=== PATIENT | female | born 1990 | race Caucasian/White ===

== ENCOUNTER 2017-09-18 15:50 | Emergency (ER) | payer MEDICAID, OTHER ==
[~2017-09-18] VITALS: Ht 177.8 cm; Wt 161.5 kg
[2017-09-18 16:12] VITALS: BP 137/86
== END 2017-09-18 18:39 | disposition home or self-care (01) ==
LOC: ED 18:20
DX: M17.12 Unilateral primary osteoarthritis, left knee (principal); G89.11 Acute pain due to trauma; F41.1 Generalized anxiety disorder; E66.01 Morbid (severe) obesity due to excess calories; Z90.89 Acquired absence of other organs; V89.2XXA Person injured in unspecified motor-vehicle accident, traffic, initial encounter; Y93.89 Activity, other specified; Y99.8 Other external cause status; Y92.488 Other paved roadways as the place of occurrence of the external cause
CPT/HCPCS: 29505; 99284

== ENCOUNTER 2020-01-17 19:57 | Emergency (ER) | payer SELFPAY ==
[~2020-01-17] VITALS: Ht 177.8 cm; Wt 182.7 kg
[2020-01-17] MEDS ORDERED: LORazepam 2 MG/ML, 1ML IVPush ONE (20:30)
[2020-01-17] MEDS ORDERED: SODIUM CHLORIDE FLUSH 10ML SYR IVF ONE (20:30)
[2020-01-17] MEDS ORDERED: SODIUM CHLORIDE 0.9% 1,000ML IVBOLUS ONE (20:30)
[2020-01-17] MEDS ORDERED: LORazepam 2 MG/ML, 1ML ONE ×2 (20:44→20:48)
[2020-01-17 20:49] LABS: BASOPHILS # (AUTO) 0.03 x10^3/uL (0-0.1); BASOPHILS % (AUTO) 0 % (0-1); EOSINOPHILS # (AUTO) 0.12 x10^3/uL (0-0.4); EOSINOPHILS % (AUTO) 1 % (1-7); LYMPHOCYTES # (AUTO) 3.25 x10^3/uL (1-3.4); LYMPHOCYTES % (AUTO) 30 % (22-44); MD NO; MEAN CORPUSCULAR HEMOGLOBIN 30.7 pg (27.0-34.8); MEAN CORPUSCULAR HGB CONC 33.7 g/dL (32.4-35.8); MEAN CORPUSCULAR VOLUME 91.3 fL (80-100); MEAN PLATELET VOLUME 7.8 fL (7.4-10.4); MONOCYTES # (AUTO) 0.82 x10^3/uL (0.2-0.8); MONOCYTES % (AUTO) 8 % (2-9); NEUTROPHILS # (AUTO) 6.82 x10^3/uL (1.8-6.8); NEUTROPHILS % (AUTO) 62 % (42-75); PLATELET COUNT 359 x10^3/uL (130-400); RED BLOOD COUNT 5.55 x10^6/uL (3.82-5.3); RED CELL DISTRIBUTION WIDTH 12.8 % (9.6-15.2)
[2020-01-17 20:50] LABS: ALANINE AMINOTRANSFERASE 57 U/L (12-78); ALBUMIN 4.2 g/dL (3.4-5.0); ANION GAP 6 mmol/L (5-15); CALCIUM 9.6 mg/dL (8.5-10.1); CHLORIDE 108 mmol/L (98-107)
[2020-01-17 20:55] LABS: ALKALINE PHOSPHATASE 131 U/L (45-117); BILIRUBIN,TOTAL 0.5 mg/dL (0.2-1.0); CREATINE KINASE, TOTAL 88 U/L (26-192)
[2020-01-17 23:56] VITALS: BP 127/77
== END 2020-01-17 23:59 | disposition home or self-care (01) ==
LOC: ED 20:30
DX: R53.1 Weakness (principal); R42 Dizziness and giddiness; Z90.89 Acquired absence of other organs; H53.9 Unspecified visual disturbance
CPT/HCPCS: 36415; 80053; 82550; 84443; 84703; 85025; 93005; 96361; 96374; 99285; J2060; J7030

== ENCOUNTER → 2020-08-05 | Outpatient (CLI) | payer OTHER | END | disposition home or self-care (01) | LOC: STAR 08:55 | PROVIDERS: ATTEND Anesthesiology | DX: Z01.812 Encounter for preprocedural laboratory examination (principal); Z20.828 Contact with and (suspected) exposure to other viral communicable diseases | CPT/HCPCS: 36415; 87635 ==

== ENCOUNTER 2020-08-09 05:40 | Day surgery (SDC) | payer OTHER ==
[~2020-08-09] VITALS: Ht 177.8 cm; Wt 185.0 kg
[2020-08-09 06:15] VITALS: BP 155/95
[2020-08-09] MEDS ORDERED: LIDOCAINE-MPF 1%, 2ML INFIL STA (06:17)
[2020-08-09] MEDS ORDERED: LACTATED RINGERS 1,000 ML IV ONE (06:17)
[2020-08-09] MEDS ORDERED: CHLORHEXIDINE 15 ML UDC MM STA (06:17)
[2020-08-09] MEDS ORDERED: CHLORHEXIDINE 15 ML UDC ONE (06:19)
[2020-08-09 06:37] LABS: HCG UR SG 1.027 (1.003-1.030)
[2020-08-09] MEDS ORDERED: NO MEDS PER PT (06:52)
[2020-08-09] MEDS ORDERED: MIDAZOLAM 1 MG/ML, 2ML ONE (07:01)
[2020-08-09] MEDS ORDERED: PROPOFOL 10 MG/ML, 20ML ONE (07:02)
[2020-08-09] MEDS ORDERED: FENTANYL PF 100 MCG/2ML ONE (07:02)
[2020-08-09] MEDS ORDERED: FENTANYL PF 100 MCG/2ML IV PRN (07:30)
[2020-08-09] MEDS ORDERED: OXYcodone 5 MG/5 ML ORAL.SOL UDC PO PRN (07:30)
[2020-08-09] MEDS ORDERED: HYDROmorphone 1 MG/ML, 1ML INJ IVPush PRN (07:30)
[2020-08-09] MEDS ORDERED: LABETALOL 5MG/ML, 20ML IV PRN (07:30)
[2020-08-09] MEDS ORDERED: ONDANSETRON 2MG/ML, 2ML IVPush PRN (07:30)
[2020-08-09] MEDS ORDERED: PROMETHAZINE 25 MG/ML, 1ML IVPush PRN (07:30)
[2020-08-09] MEDS ORDERED: hydrALAzine 20 MG/ML, 1ML IV PRN (07:30)
[2020-08-09] MEDS ORDERED: MEPERIDINE/PF 25MG/0.5ML IVPush PRN (07:30)
[2020-08-09] MEDS ORDERED: ACETAMINOPHEN 650 MG/20.3 ML UDC ONE (08:35)
[2020-08-09] MEDS ORDERED: ACETAMINOPHEN 325 MG TABLET PO PRN (09:00)
== END 2020-08-09 10:00 | disposition home or self-care (01) ==
LOC: OUT 05:40
PROVIDERS: ATTEND Internal Medicine Geriatric Medicine
DX: K62.5 Hemorrhage of anus and rectum (principal); K64.0 First degree hemorrhoids; K29.50 Unspecified chronic gastritis without bleeding; K63.89 Other specified diseases of intestine; F32.9 Major depressive disorder, single episode, unspecified; F41.9 Anxiety disorder, unspecified; Z98.890 Other specified postprocedural states; Z87.891 Personal history of nicotine dependence; Z88.8 Allergy status to other drugs, medicaments and biological substances; Z88.3 Allergy status to other anti-infective agents; Z72.89 Other problems related to lifestyle
CPT/HCPCS: 43239; 45380; 81025; 88305; J2250; J2704; J3010; J7120

== ENCOUNTER 2021-01-06 23:06 | Emergency (ER) | payer OTHER ==
[~2021-01-06] VITALS: Ht 177.8 cm; Wt 190.6 kg
[~2021-01-06 23:06] MED LIST: NO MEDS PER PT
[2021-01-06 23:07] VITALS: BP 164/92
--- NOTE | 2021-01-06 23:29 | NUR ---
PATIENT CLEARED FOR DISCHARGE. NO NOTED ACUTE DISTRESS. TOLERATED INTERVENTIONS WELL. PATIENT AMBULATORY TO DISCHARGE WITHOUT COMPLICATIONS WITH BELONGINGS.
== END 2021-01-06 23:34 | disposition home or self-care (01) ==
LOC: ED 23:15
DX: Z00.00 Encounter for general adult medical examination without abnormal findings (principal); H92.01 Otalgia, right ear; E11.9 Type 2 diabetes mellitus without complications
CPT/HCPCS: 99281